=== PATIENT | female | born 1980 | race Caucasian/White ===

== ENCOUNTER 2016-06-18 06:44 | Day surgery (SDC) | payer OTHER ==
[2016-06-18] MEDS ORDERED: MIDAZOLAM 2 MG/2 ML VIAL IVP ONE (07:30)
[2016-06-18] MEDS ORDERED: LIDOCAINE 1% 2 ML INJ IF ONE (07:30)
[2016-06-18 07:31] LABS: % IMMATURE GRANULYOCYTES 0.2 % (0.0-1.1); ABSOLUTE IMMATURE GRANULOCYTES 0.01 10^3/uL (0.00-0.10); ADD DIFF? NO; ADD MORPH? NO; ADD SCAN? NO; ATYPICAL LYMPHOCYTE FLAG 50 (0-99); FRAGMENT RBC FLAG 0 (0-99); HEMATOCRIT 37.2 % (38.0-47.0); HEMOGLOBIN 13.2 g/dL (12.6-16.3); LEFT SHIFT FLG 0 (0-99); LIPEMIA HEMOLYSIS FLAG 90 (0-99); MEAN CELL HEMOGLOBIN 32.9 pg (27.9-34.1); MEAN CELL HEMOGLOBIN CONCENTR. 35.5 g/dL (32.4-36.7); MEAN CELL VOLUME 92.8 fL (81.5-99.8); MEAN PLATELET VOLUME 10.8 fL (8.7-11.7); PLATELET CLUMPS FLAG 10 (0-99); PLATELET COUNT 213 10^3/uL (150-400); RED BLOOD CELL COUNT 4.01 10^6/uL (4.18-5.33)
[2016-06-18] MEDS ORDERED: fentaNYL 100 MCG/2 ML INJ ONE (07:38)
[2016-06-18] MEDS ORDERED: PROPOFOL/EMULSION 500 MG/50 ML BOTTLE IV ONE (07:39)
[2016-06-18] MEDS ORDERED: LIDOCAINE 2% 5 ML SDV ONE (08:18)
[2016-06-18] MEDS ORDERED: DEXAMETHASONE 4 MG/ML VIAL ONE ×2 (08:18)
[2016-06-18] MEDS ORDERED: KETOROLAC 30 MG/1 ML SDV ONE (08:18)
[2016-06-18] MEDS ORDERED: HYDROCODONE/APAP 5/325 TAB PO PRN (08:27)
[2016-06-18] MEDS ORDERED: TDAP ADULT 0.5 ML INJ (BOOSTRIX) IM ONE (08:27)
--- NOTE | 2016-06-18 08:53 | GOP ---
[f rep st] OPERATIVE REPORT DATE OF OPERATION: 06/18/2016 SURGEON: Juju Vergara MD ANESTHESIA: IV general. ANESTHESIOLOGIST: Eric Malagon MD. 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 POSTOPERATIVE DIAGNOSIS: Same. PROCEDURE PERFORMED: Suction dilatation and curettage. FINDINGS: 13 week uterus. Cervix soft after misoprostol preparation. Intrauterine consistent with dates. Thin endometrial stripe at end of procedure. SPECIMENS: Products of conception, examined and consistent with gestational age , and found to be complete. ESTIMATED BLOOD LOSS: Minimal. DESCRIPTION OF PROCEDURE: The patient was taken to the operating room, and IV general sedation was started. She had already emptied her bladder. She was prepped and draped in the normal sterile fashion in dorsal lithotomy position. She had taken antibiotics at home the night before p.o. The Klopfer speculum was placed in the vagina. The cervix was grasped with a single-tooth tenaculum on the anterior lip. A paracervical block of 10 mL of 1% lidocaine was injected. The cervix was sequentially dilated to 12.5 mm using Annika dilators, this was easily performed with minimal resistance. The 12 mm suction curette was introduced into the uterus under direct ultrasound guidance. The uterine contents were completely emptied with 2 passes. At this time, the 8 mm suction curette was introduced, and it was confirmed that there was a gritty texture 360 degrees around the uterus. The ultrasound also confirmed that the uterus was empty with a thin uterine stripe. All instruments were removed. Silver nitrate was used to control bleeding at the left-sided tenaculum site. Hemostasis was noted at that point. The uterine fundus was firm. The patient was awakened and taken to the recovery room in stable condition. All counts were correct x2. COMPLICATIONS: None. /[id number]/MODL MTDD
== END 2016-06-18 09:50 | disposition home or self-care (01) ==
LOC: FOBOP 06:44
PROVIDERS: ATTEND Obstetrics & Gynecology
PROC: 10A07ZZ Abortion of Products of Conception, Via Natural or Artificial Opening (ICD-10-PCS; principal; 2016-06-18)
DX: O35.1XX0 Maternal care for (suspected) chromosomal abnormality in fetus, not applicable or unspecified (principal); Z3A.13 13 weeks gestation of pregnancy; Z23 Encounter for immunization
CPT/HCPCS: J1100; J1885; J2250; J2704; J3010

== ENCOUNTER → 2017-02-05 | Outpatient (CLI) | payer OTHER | LOC: BMCIMAGING 12:55 | PROVIDERS: ATTEND Advanced Practice Midwife | DX: Z36.87 Encounter for antenatal screening for uncertain dates (principal) ==

== ENCOUNTER → 2017-04-15 | Outpatient (CLI) | payer OTHER | LOC: FIMAGING 10:27 | PROVIDERS: ATTEND Advanced Practice Midwife | DX: O09.522 Supervision of elderly multigravida, second trimester (principal); N85.6 Intrauterine synechiae; Z3A.20 20 weeks gestation of pregnancy ==

== ENCOUNTER → 2017-09-02 | Outpatient (CLI) | payer OTHER | LOC: FIMAGING 14:40 | PROVIDERS: ATTEND Advanced Practice Midwife | DX: O09.523 Supervision of elderly multigravida, third trimester (principal); O48.0 Post-term pregnancy; Z3A.40 40 weeks gestation of pregnancy ==

== ENCOUNTER 2017-09-10 12:05 | Inpatient (IN) | payer OTHER ==
[2017-09-10] MEDS ORDERED: LIDOCAINE 1% 300 MG/30 ML SDV SC PRN (12:35)
[2017-09-10] MEDS ORDERED: OLIVE OIL 118 ML BTL MISC PRN (12:35)
[2017-09-10] MEDS ORDERED: TERBUTALINE SULFATE 1 MG/ML VIAL IV PRN (12:35)
[2017-09-10] MEDS ORDERED: IBUPROFEN 600 MG TAB PO PRN (12:35)
[2017-09-10] MEDS ORDERED: OXYTOCIN/RINGERS LACTATE 1,000 ML IV PRN (12:35)
[2017-09-10] MEDS ORDERED: MISOPROSTOL 200 MCG TAB PR PRN (12:35)
[2017-09-10] MEDS ORDERED: LR 1,000 ML IV PRN (12:35)
[2017-09-10] MEDS ORDERED: EPSOM SALT 454 GM TP PRN (12:35)
[2017-09-10 13:33] LABS: PLATELET COUNT 189 10^3/uL (150-400)
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
[2017-09-10] MEDS ORDERED: OLIVE OIL 118 ML BTL ONE (14:49)
[2017-09-10] MEDS ORDERED: LIDOCAINE 1% 300 MG/30 ML SDV ONE (14:49)
[2017-09-10] MEDS ORDERED: AMMONIA AROMATIC 1 EACH AMP IH ONE (14:50)
[2017-09-10] MEDS ORDERED: MISOPROSTOL 200 MCG TAB ONE (14:50)
[2017-09-10] MEDS ORDERED: OXYTOCIN 10 UNIT/ML VIAL ONE (14:50)
[2017-09-10] MEDS ORDERED: TERBUTALINE SULFATE 1 MG/ML VIAL ONE (14:50)
[2017-09-10] MEDS ORDERED: OXYTOCIN/RINGERS LACTATE 500 ML IV SCH (15:00)
--- NOTE | 2017-09-10 20:51 | OBPROG ---
Labor Progress Note Assessment/Plan: Assessment:36 undergoing 42 wk IOL with pitocin. GBS neg. Not in active labor yet, slow progress. Plan: Continue with pitocin. Georges Santiago MD 09/10/17 20:44 Subjective/Intrapartum Course: 09/10/17 20:46 Pt doing well, getting a bit uncomfortable with contractions. No LOF. Objective: 09/10/17 12:40 Patient ABO/Rh AB POSITIVE 09/10/17 12:40 37.0 68 120/72 95% on RA Gen - pleasant, NAD SVE 3.5 / 60 / -3 FHR 130 with 2 episodes of bradycardia to 90s x 2-3 minutes when pt was ambulating. toco - was q 1-2 min. Just turned pitocin down from 12 to 6mIU/hr. - SVE Dilation (cm): 3 Effacement (%): 50 Station: -2 Membranes: Intact - Contraction Pattern Assessment Current Contraction Pattern: Regular, Tachysystole - FHR Assessment Platt FHR (bpm): 130 FHR Pattern Variability: Moderate FHR Category: 1 Oxytocin Orders Assessment - Pre-Induction/Augmentation Assessment Gestational Age: 42 week(s) and 0 day(s) ICD10 Worksheet Patient Problems: Problems Problem Status Onset Post-dates Acute - ICD10 Problem Qualifiers (1) Post-dates Qualifiers: Post-term type: greater than 42 weeks gestation Qualified Code(s) : O48.1 - Prolonged
--- NOTE | 2017-09-11 00:51 | OBPROG ---
Labor Progress Note Assessment/Plan: Assessment:36 undergoing 42 wk IOL with pitocin. GBS neg. Not in active labor yet, slow progress. Plan: Continue with pitocin. Georges Santiago MD 09/10/17 20:44 09/11/17 00:38 A/P: 36 at 42w1d undergoing IOL with pitocin. GBS neg. Still not in active labor yet. Will continue pitocin. Georges Santiago MD Subjective/Intrapartum Course: 09/10/17 20:46 Pt doing well, getting a bit uncomfortable with contractions. No LOF. 09/11/17 00:39 Pt a bit frustrated. Sometimes contractions are uncomfortable, sometime not at all. No LOF, no VB. Objective: 09/10/17 12:40 Patient ABO/Rh AB POSITIVE 09/10/17 12:40 36.6 66 110/56 Gen - pleasant, NAD SVE - 4/60/-2 min change abd - gravid, soft, NT - SVE Dilation (cm): 4 Effacement (%): 50 Membranes: Intact - Contraction Pattern Assessment Current Contraction Pattern: Regular, Tachysystole Oxytocin Orders Assessment - Pre-Induction/Augmentation Assessment Gestational Age: 42 week(s) and 0 day(s) ICD10 Worksheet Patient Problems: Problems Problem Status Onset Post-dates Acute - ICD10 Problem Qualifiers (1) Post-dates Qualifiers: Post-term type: greater than 42 weeks gestation Qualified Code(s) : O48.1 - Prolonged
--- NOTE | 2017-09-11 04:43 | OBPROG ---
Labor Progress Note Assessment/Plan: Assessment:36 undergoing 42 wk IOL with pitocin. GBS neg. Not in active labor yet, slow progress. Plan: Continue with pitocin. Georges Santiago MD 09/10/17 20:44 09/11/17 00:38 A/P: 36 at 42w1d undergoing IOL with pitocin. GBS neg. Still not in active labor yet. Will continue pitocin. Georges Santiago MD 09/11/17 04:39 A/P: 36 at 42w1d, undergoing IOL, no s/p AROM - lt mec fluid, making slow progress. Continue pitocin. Georges Santiago MD Subjective/Intrapartum Course: 09/10/17 20:46 Pt doing well, getting a bit uncomfortable with contractions. No LOF. 09/11/17 00:39 Pt a bit frustrated. Sometimes contractions are uncomfortable, sometime not at all. No LOF, no VB. 09/11/17 04:40 Doing well, was in the tube for a while. Agreed to proceed with AROM after a long discussion. Objective: 09/10/17 12:40 Patient ABO/Rh AB POSITIVE 09/10/17 12:40 AROM - lt mec, SVE 5/60/-2 - SVE Membranes: Intact Amniotic Fluid Color: Meconium Stained - Contraction Pattern Assessment Current Contraction Pattern: Regular, Tachysystole - FHR Assessment Platt FHR (bpm): 140 (occasional late decel) FHR Pattern Variability: Moderate FHR Category: 2 (intermittent late appearing and variable decels) - Procedures Non-surgical Procedures: Amniotomy Oxytocin Orders Assessment - Pre-Induction/Augmentation Assessment Gestational Age: 42 week(s) and 0 day(s) ICD10 Worksheet Patient Problems: Problems Problem Status Onset Post-dates Acute - ICD10 Problem Qualifiers (1) Post-dates Qualifiers: Post-term type: greater than 42 weeks gestation Qualified Code(s) : O48.1 - Prolonged
[2017-09-11] MEDS ORDERED: fentaNYL 100 MCG/2 ML INJ IVP ONE (08:36)
[2017-09-11] MEDS ORDERED: fentaNYL 100 MCG/2 ML INJ ONE ×2 (08:37→13:13)
--- NOTE | 2017-09-11 08:43 | OBPROG ---
Labor Progress Note Assessment/Plan: Assessment: 36 y/o @ 42 1/7 weeks IOL secondary to post dates Plan: Pt will get an epidural now and allow pt to rest, we will dose pitocin to create adequate contractions. status is reassuring. 09/11/17 08:39 Subjective/Intrapartum Course: 09/10/17 20:46 Pt doing well, getting a bit uncomfortable with contractions. No LOF. 09/11/17 00:39 Pt a bit frustrated. Sometimes contractions are uncomfortable, sometime not at all. No LOF, no VB. 09/11/17 04:40 Doing well, was in the tube for a while. Agreed to proceed with AROM after a long discussion. 09/11/17 08:37 Pt is feeling very tired and frustrated. She continues to have strong contractions, but feels less pressure and less momentum. She is exhausted and wants to be "done." Objective: 09/10/17 12:40 Patient ABO/Rh AB POSITIVE 09/10/17 12:40 - SVE Dilation (cm): 6 Effacement (%): 90 Station: +1 Membranes: AROM, Intact Amniotic Fluid Color: Meconium Stained - Contraction Pattern Assessment Current Contraction Pattern: Regular, Irregular (Q 3-5), Tachysystole - FHR Assessment Platt FHR (bpm): 140 FHR Pattern Variability: Moderate FHR Category: 1 - Procedures Non-surgical Procedures: Amniotomy Oxytocin Orders Assessment - Pre-Induction/Augmentation Assessment Gestational Age: 42 week(s) and 0 day(s) ICD10 Worksheet Patient Problems: Problems Problem Status Onset Post-dates Acute
[2017-09-11] MEDS ORDERED: BUPIVACAINE 0.25% 30 ML SDV ONE (08:47)
--- NOTE | 2017-09-11 08:47 | PREANESOB ---
Obstetric Pre-Anesthesia Info - General Info Proposed Procedure: TENA : 2 Para: 0 CODIE: 08/27/17 Gestational Age: 42 week(s) and 0 day(s) - Info Status: Full Term Monitors: External FHR Pattern: Reassuring - Labor Status Cervical Dilation per last OB SVE: 6 Station per last OB SVE: +1 Amniotic Fluid Color: Meconium Stained PIH: No Magnesium Sulfate in Use: No Indications for Labor Analgesia: Pain Control Labor Epidural: Proposed (Patient transfered from center - requesting labor epidural) Anesthesia ROS: Labor pain (uterine contractions) only reported issue at time of interview. Allergies/Adverse Reactions: Allergy/AdvReac Type Severity Reaction Status Date / Time No Known Allergies Allergy Unverified 06/18/16 07:25 Home Medications: Medication Instructions Recorded Dha 09/10/17 Vit27&Calcium/Iron/FA 1 each PO DAILY 09/10/17 [ Rx 1 Tablet (RX)] Probiotic 09/10/17 Vitamin D3 09/10/17 Visit Medications: Generic Name Dose Route Start Last Admin Trade Name Markos PRN Reason Stop Dose Admin Lactated Ringer's 1,000 mls @ 0 mls/hr 09/10/17 12:35 Lr IV 09/11/17 12:34 PRN PRN SEE PROTOCOL CONDITIONS Protocol Per Protocol Oxytocin/Lactated Ringer's 1,000 mls @ 125 mls/hr 09/10/17 12:35 Pitocin 20 Units/Lr (Premix) IV PRN PRN Post bleeding Oxytocin/Lactated Ringer's 500 mls @ 0 mls/hr 09/10/17 15:00 Pitocin 30 Units/Lr (Premix) IV 03/09/18 14:59 CONT LANDY Protocol Per Protocol Ibuprofen 600 mg 09/10/17 12:35 Motrin PO ONCE PRN post , pain Lidocaine HCl 300 mg 09/10/17 12:35 Lidocaine Hcl 1% SC 03/09/18 12:34 ONCE PRN episiotomy Magnesium Sulfate 454 gm 09/10/17 12:35 Epsom Salt TP 03/09/18 12:34 Q1H PRN perineal discomfort Misoprostol 800 - 1,000 mcg 09/10/17 12:35 Cytotec IN ONCE PRN Vaginal Atony/Bleeding [place] Oil 118 ml 09/10/17 12:35 Sweet Oil MISC 12/19/18 12:34 ONCE PRN perineal massage Terbutaline Sulfate 0.25 mg 09/10/17 12:35 Brethine IV 03/09/18 12:34 ONCE PRN Tachysystole Discontinued Medications Generic Name Dose Route Start Last Admin Trade Name Markos PRN Reason Stop Dose Admin Ammonia (Aromatic Spirit) Confirm 09/10/17 14:50 Ammonia Aromatic Administered 09/10/17 14:51 Dose 1 each IH .STK-MED ONE Fentanyl 100 mcg 09/11/17 08:36 Sublimaze IVP 09/11/17 08:37 ONCE ONE Fentanyl Confirm 09/11/17 08:37 Sublimaze Administered 09/11/17 08:38 Dose 100 mcg .ROUTE .STK-MED ONE Lidocaine HCl Confirm 09/10/17 14:49 Lidocaine Hcl 1% Administered 09/10/17 14:50 Dose 300 mg .ROUTE .STK-MED ONE Misoprostol Confirm 09/10/17 14:50 Cytotec Administered 09/10/17 14:51 Dose 1,000 mcg .ROUTE .STK-MED ONE [place] Oil Confirm 09/10/17 14:49 Sweet Oil Administered 09/10/17 14:50 Dose 118 ml .ROUTE .STK-MED ONE Oxytocin Confirm 09/10/17 14:50 Pitocin Administered 09/10/17 14:51 Dose 40 unit .ROUTE .STK-MED ONE Terbutaline Sulfate Confirm 09/10/17 14:50 Brethine Administered 09/10/17 14:51 Dose 1 mg .ROUTE .STK-MED ONE - Anesthesia History Response to Local Anesthetics: Normal Anesthesia & Operative History: No Prior Problems Family Anesthesia History: Not Applicable - Social History Substance Use/Abuse: Denies - Vital Signs Height/Weight (Nursing): Height 170.18 cm Weight 97.976 kg - Focused Exam Neck exam: FROM Mallampati Score: Class 2 Mouth exam: normal dental/mouth exam Pulmonary: no respiratory distress Cardiovascular: regular rate and rhythym Labs: 09/10/17 12:40 Patient ABO/Rh AB POSITIVE 09/10/17 12:40 - Plan Consent Signed and on Chart: Yes Patient/Guardian Understands and Agrees to Plan: Yes
[2017-09-11] MEDS ORDERED: PHENYLEPHRINE HCL 100 MCG/ML SYR IVP PRN ×2 (09:26→14:42)
[2017-09-11] MEDS ORDERED: ONDANSETRON 4 MG/2 ML VIAL IVP PRN ×2 (09:26→14:42)
[2017-09-11] MEDS ORDERED: LR 500 ML IV SCH (09:30)
[2017-09-11] MEDS ORDERED: fentaNYL 200 MCG, BUPIVACAINE 0.5% 20 ML in NS 100 ML EP SCH (09:30)
[2017-09-11] MEDS ORDERED: fentaNYL 2MCG/ML/BUP 0.1% RTU 100 ML EP SCH (09:30)
--- NOTE | 2017-09-11 09:52 | POSTANESTH ---
Post Anesthetic Evaluation Cardiovascular Status: Normal, Stable, Similar to Pre-Op Cond Respiratory Status: Normal, Stable, Similar to Pre-op Cond. Level of Consciousness/Mental Status: Can Participate in Eval, Alert and Oriented Pain Control: Adequate, Prn Tx Ordered Nausea/Vomiting Control: Adequate, Prn Tx Ordered Complications Possibly Related to Anesthesia: None Noted (Patient comfortable after placement of labor epidural. Patient tolerated procedure well.)
--- NOTE | 2017-09-11 12:15 | OBPROG ---
Labor Progress Note Assessment/Plan: Assessment: 36 y/o @ 42 1/7 weeks IOL secondary to post dates Plan: Pt has made little progress in the interim. I placed an IUPC to document the adequacy of contractions and we will increase the pitocin as needed. status is reassuring, exam feels OP position. We are trying side lying with peanut ball and various other positioning to attempt to encourage baby to turn. I will recheck in 2 hours. 09/11/17 08:39 09/11/17 12:12 Subjective/Intrapartum Course: 09/10/17 20:46 Pt doing well, getting a bit uncomfortable with contractions. No LOF. 09/11/17 00:39 Pt a bit frustrated. Sometimes contractions are uncomfortable, sometime not at all. No LOF, no VB. 09/11/17 04:40 Doing well, was in the tube for a while. Agreed to proceed with AROM after a long discussion. 09/11/17 08:37 Pt is feeling very tired and frustrated. She continues to have strong contractions, but feels less pressure and less momentum. She is exhausted and wants to be "done." 09/11/17 12:11 Pt is feeling much better with her epidural. She has good pain control and was able to rest and feels revived. She would like to try some clear liquids. Objective: 09/10/17 12:40 Patient ABO/Rh AB POSITIVE 09/10/17 12:40 - SVE Dilation (cm): 7 Effacement (%): 80 Station: +1 Membranes: AROM, Intact Amniotic Fluid Color: Meconium Stained - Contraction Pattern Assessment Current Contraction Pattern: Regular, Irregular (Q 3-5), Tachysystole - FHR Assessment Platt FHR (bpm): 140 FHR Pattern Variability: Moderate FHR Category: 1 - Procedures Non-surgical Procedures: Amniotomy, IUPC Oxytocin Orders Assessment - Pre-Induction/Augmentation Assessment Gestational Age: 42 week(s) and 0 day(s) ICD10 Worksheet Patient Problems: Problems Problem Status Onset Post-dates Acute
[2017-09-11] MEDS ORDERED: PHENYLEPHRINE HCL 100 MCG/ML SYR ONE (13:14)
[2017-09-11] MEDS ORDERED: LR 500 ML IV ONE (13:34)
[2017-09-11] MEDS ORDERED: ceFAZolin 2 GM/DEXTROSE 100 ML IV ONE (13:34)
--- NOTE | 2017-09-11 13:34 | OBPROG ---
Labor Progress Note Assessment/Plan: Assessment: 36 y/o @ 42 1/7 weeks IOL secondary to post dates Plan: We discussed little progress has been made with pitocin and IUPC. Baby is showing signs of intolerance to labor and she remains remote from delivery. I recommend a c section delivery now and patient and family are in agreement. Consent signed and all questions answered. 09/11/17 08:39 09/11/17 12:12 09/11/17 13:30 Subjective/Intrapartum Course: 09/10/17 20:46 Pt doing well, getting a bit uncomfortable with contractions. No LOF. 09/11/17 00:39 Pt a bit frustrated. Sometimes contractions are uncomfortable, sometime not at all. No LOF, no VB. 09/11/17 04:40 Doing well, was in the tube for a while. Agreed to proceed with AROM after a long discussion. 09/11/17 08:37 Pt is feeling very tired and frustrated. She continues to have strong contractions, but feels less pressure and less momentum. She is exhausted and wants to be "done." 09/11/17 12:11 Pt is feeling much better with her epidural. She has good pain control and was able to rest and feels revived. She would like to try some clear liquids. 09/11/17 13:28 Pt remains comfortable with her epidural. Objective: 09/10/17 12:40 Patient ABO/Rh AB POSITIVE 09/10/17 12:40 - SVE Dilation (cm): 7 Effacement (%): 80 Station: 0 Membranes: AROM, Intact Amniotic Fluid Color: Meconium Stained - Contraction Pattern Assessment Current Contraction Pattern: Regular, Irregular (Q 5), Tachysystole - FHR Assessment Platt FHR (bpm): 140 FHR Pattern Variability: Moderate FHR Category: 2 (episodes of min variability, tachycardia and late decelerations , now resolved off pitocin) - Procedures Non-surgical Procedures: Amniotomy, IUPC Oxytocin Orders Assessment - Pre-Induction/Augmentation Assessment Gestational Age: 42 week(s) and 0 day(s) ICD10 Worksheet Patient Problems: Problems Problem Status Onset Post-dates Acute
--- NOTE | 2017-09-11 13:40 | PREANESOB ---
Obstetric Pre-Anesthesia Info - General Info Proposed Procedure: (with existing labor epidural) : 2 Para: 0 CODIE: 08/27/17 Gestational Age: 42 week(s) and 0 day(s) - Info Status: Full Term FHR Pattern: Non-reassuring - Labor Status Cervical Dilation per last OB SVE: 7 Station per last OB SVE: 0 Amniotic Fluid Color: Meconium Stained Pitocin: In Use PIH: No Magnesium Sulfate in Use: No Indications for Labor Analgesia: Pain Control Section History: Primary Indications for Current Section: Non-reas. Status Labor Epidural: Yes Anesthesia Allergies/Adverse Reactions: Allergy/AdvReac Type Severity Reaction Status Date / Time No Known Allergies Allergy Unverified 06/18/16 07:25 Home Medications: Medication Instructions Recorded Dha 09/10/17 Vit27&Calcium/Iron/FA 1 each PO DAILY 09/10/17 [ Rx 1 Tablet (RX)] Probiotic 09/10/17 Vitamin D3 09/10/17 Visit Medications: Generic Name Dose Route Start Last Admin Trade Name Markos PRN Reason Stop Dose Admin Oxytocin/Lactated Ringer's 1,000 mls @ 125 mls/hr 09/10/17 12:35 Pitocin 20 Units/Lr (Premix) IV PRN PRN Post bleeding Oxytocin/Lactated Ringer's 500 mls @ 0 mls/hr 09/10/17 15:00 Pitocin 30 Units/Lr (Premix) IV 03/09/18 14:59 CONT LANDY Protocol Per Protocol Fentanyl 200 mcg/ Bupivacaine 100 mls @ 0 mls/hr 09/11/17 09:30 HCl 20 ml/ Sodium Chloride EP 09/21/17 09:29 CONT LANDY Protocol As Directed Lactated Ringer's 500 mls @ 0 mls/hr 09/11/17 09:30 Lr IV 03/10/18 09:29 CONT LANDY As Directed Cefazolin Sodium/Dextrose 100 mls @ 200 mls/hr 09/11/17 13:34 Ancef 2 Gm IV 09/11/17 14:03 ONCALL ONE Protocol Lactated Ringer's 1,000 mls @ 125 mls/hr 09/11/17 14:00 Lr IV 09/12/17 13:59 CONT LANDY Ibuprofen 600 mg 09/10/17 12:35 Motrin PO ONCE PRN post , pain Lidocaine HCl 300 mg 09/10/17 12:35 Lidocaine Hcl 1% SC 03/09/18 12:34 ONCE PRN episiotomy Magnesium Sulfate 454 gm 09/10/17 12:35 Epsom Salt TP 03/09/18 12:34 Q1H PRN perineal discomfort Misoprostol 800 - 1,000 mcg 09/10/17 12:35 Cytotec [place] ONCE PRN Vaginal Atony/Bleeding [place] Oil 118 ml 09/10/17 12:35 Sweet Oil MISC 03/09/18 12:34 ONCE PRN perineal massage Ondansetron HCl 4 mg 09/11/17 09:26 Zofran IVP 09/12/17 09:25 Q4HRS PRN Nausea/Vomiting, Can't Take PO Phenylephrine HCl 100 mcg 09/11/17 09:26 Neosynephrine IVP 03/10/18 09:25 .Q2M PRN Hypotension Terbutaline Sulfate 0.25 mg 09/10/17 12:35 Brethine IV 03/09/18 12:34 ONCE PRN Tachysystole Discontinued Medications Generic Name Dose Route Start Last Admin Trade Name Freq PRN Reason Stop Dose Admin Ammonia (Aromatic Spirit) Confirm 09/10/17 14:50 Ammonia Aromatic Administered 09/10/17 14:51 Dose 1 each IH .STK-MED ONE Bupivacaine HCl Confirm 09/11/17 08:47 Sensorcaine 0.25% Sdv Administered 09/11/17 08:48 Dose 30 ml .ROUTE .STK-MED ONE Fentanyl 100 mcg 09/11/17 08:36 Sublimaze IVP 09/11/17 08:37 ONCE ONE Fentanyl Confirm 09/11/17 08:37 Sublimaze Administered 09/11/17 08:38 Dose 100 mcg .ROUTE .STK-MED ONE Fentanyl Confirm 09/11/17 13:13 Sublimaze Administered 09/11/17 13:14 Dose 100 mcg .ROUTE .STK-MED ONE Lactated Ringer's 1,000 mls @ 0 mls/hr 09/10/17 12:35 Lr IV 09/11/17 12:34 PRN PRN SEE PROTOCOL CONDITIONS Protocol Per Protocol Lactated Ringer's 500 mls @ 0 mls/hr 09/11/17 13:34 Lr IV 09/11/17 13:35 ONCE ONE As Directed Lidocaine HCl Confirm 09/10/17 14:49 Lidocaine Hcl 1% Administered 09/10/17 14:50 Dose 300 mg .ROUTE .STK-MED ONE Misoprostol Confirm 09/10/17 14:50 Cytotec Administered 09/10/17 14:51 Dose 1,000 mcg .ROUTE .STK-MED ONE Morphine Sulfate Confirm 09/11/17 13:12 Morphine Administered 09/11/17 13:13 Dose 4 mg .ROUTE .STK-MED ONE [place] Oil Confirm 09/10/17 14:49 Sweet Oil Administered 09/10/17 14:50 Dose 118 ml .ROUTE .STK-MED ONE Oxytocin Confirm 09/10/17 14:50 Pitocin Administered 09/10/17 14:51 Dose 40 unit .ROUTE .STK-MED ONE Phenylephrine HCl Confirm 09/11/17 13:14 Neosynephrine Administered 09/11/17 13:15 Dose 1,000 mcg .ROUTE .STK-MED ONE Terbutaline Sulfate Confirm 09/10/17 14:50 Brethine Administered 09/10/17 14:51 Dose 1 mg .ROUTE .STK-MED ONE - Anesthesia History Response to Local Anesthetics: Normal Anesthesia & Operative History: No Prior Problems Family Anesthesia History: Negative - Social History Substance Use/Abuse: Denies - Vital Signs Height/Weight (Nursing): Height 170.18 cm Weight 97.976 kg - Focused Exam Neck exam: FROM Mallampati Score: Class 2 Mouth exam: normal dental/mouth exam Pulmonary: no respiratory distress Cardiovascular: regular rate and rhythym Labs: 09/10/17 12:40 Patient ABO/Rh AB POSITIVE 09/10/17 12:40 - Plan Consent Signed and on Chart: Yes Patient/Guardian Understands and Agrees to Plan: Yes
[2017-09-11] MEDS ORDERED: LR 1,000 ML IV SCH (14:00)
[2017-09-11] MEDS ORDERED: CHLOROPROCAINE HCL 2% 400 MG/20 ML VIAL ONE (14:10)
[2017-09-11] MEDS ORDERED: ONDANSETRON 4 MG/2 ML VIAL ONE (14:19)
[2017-09-11] MEDS ORDERED: DEXAMETHASONE 4 MG/ML VIAL ONE (14:20)
[2017-09-11] MEDS ORDERED: METHYLERGONOVINE MAL 0.2 MG/ML INJ ONE (14:30)
[2017-09-11] MEDS ORDERED: fentaNYL 100 MCG/2 ML INJ IVP PRN (14:42)
[2017-09-11] MEDS ORDERED: NALOXONE HCL 0.4 MG/ML INJ IVP PRN (14:42)
[2017-09-11] MEDS ORDERED: HYDROmorphONE/DILAUDID 1 MG/ML INJ IVP PRN (14:42)
[2017-09-11] MEDS ORDERED: OXYTOCIN 100 UNITS/10 ML VIAL ONE (14:53)
[2017-09-11] MEDS ORDERED: PROMETHAZINE HCL 25 MG/ML INJ IVP PRN (15:09)
[2017-09-11] MEDS ORDERED: SIMETHICONE 80 MG TAB CHEW PO PRN (15:09)
[2017-09-11] MEDS ORDERED: DOCUSATE SODIUM 100 MG CAP PO PRN (15:09)
[2017-09-11] MEDS ORDERED: BISACODYL 10 MG SUPP PR PRN (15:14)
[2017-09-11] MEDS ORDERED: MAGNESIUM HYDROXIDE 30 ML UDCUP PO PRN (15:14)
[2017-09-11] MEDS ORDERED: POLYETHYLENE GLYCOL 3350 17 GM PKT PO PRN (15:14)
[2017-09-11] MEDS ORDERED: LACTULOSE 20 GM/30 ML UDCUP PO PRN (15:14)
--- NOTE | 2017-09-11 15:18 | OBDEL ---
Info Type: Primary Presentation at Delivery: Vertex L&D Analgesia/Anesthesia Type: Epidural GBS+: No Intrapartum Medications: Discontinued Medications Generic Name Dose Route Start Last Admin Trade Name Markos PRN Reason Stop Dose Admin Cefazolin Sodium/Dextrose 100 mls @ 200 mls/hr 09/11/17 13:34 09/11/17 13:52 Ancef 2 Gm IV 09/11/17 14:03 100 mls ONCALL ONE Administration Protocol - Care Provider Reverser/LANDSCAPER HELPER: Ayleen Maxwell - Hospital Course Intrapartum: 09/10/17 20:46 Pt doing well, getting a bit uncomfortable with contractions. No LOF. 09/11/17 00:39 Pt a bit frustrated. Sometimes contractions are uncomfortable, sometime not at all. No LOF, no VB. 09/11/17 04:40 Doing well, was in the tube for a while. Agreed to proceed with AROM after a long discussion. 09/11/17 08:37 Pt is feeling very tired and frustrated. She continues to have strong contractions, but feels less pressure and less momentum. She is exhausted and wants to be "done." 09/11/17 12:11 Pt is feeling much better with her epidural. She has good pain control and was able to rest and feels revived. She would like to try some clear liquids. 09/11/17 13:28 Pt remains comfortable with her epidural. Indications for Delivery: Postterm Favorable Cervix (42 weeks IOL) Vaginal Delivery - Labor and Delivery Amniotic Fluid Color: Meconium Stained Non-surgical Procedures: Amniotomy, IUPC Operative Report - Delivery Pre-op Diagnoses: IUP @ 42 weeks, intolerance to labor, arrest of dilation Post-op Diagnoses: same History of Prior Section: No Nulliparous Prior to Delivery: No Indications for Current Section: Arrest of Dilation, Non-reas. Status Procedure: Unscheduled Surgeon: Nayeli Caicedo Inventory Management Specialist: Layne Santiago Anesthesiologist: Moose Liu Complications: None Findings: normal uterus, tubes and ovaries IV Fluid (ml): 2,000 EBL: 800 Data CODIE: 08/27/17 Gestational Age: 42 week(s) and 1 day(s) [place] Delivery Date: 09/11/17 Delivery Time: 14:23 ICD10 Worksheet Patient Problems: Problems Problem Status Onset Delivery by section using transverse incision of lower segment of uterus Acute Post-dates Acute - ICD10 Problem Qualifiers (1) Delivery by section using transverse incision of lower segment of uterus
[2017-09-11] MEDS ORDERED: KETOROLAC 30 MG/1 ML SDV ONE (15:23)
--- NOTE | 2017-09-11 16:14 | GOP ---
[f rep st] OPERATIVE REPORT DATE OF OPERATION: 09/11/2017 SURGEON: Nayeli Caicedo MD FREIGHT ROUTER: Layne Santiago MD. ANESTHESIA: Epidural anesthesia with Duramorph. ANESTHESIOLOGIST: Moose Liu MD. PREOPERATIVE DIAGNOSIS: Intrauterine at 42 weeks' gestation for induction of labor seconda ry to postdates with arrest of dilation and intolerance to labor. POSTOPERATIVE DIAGNOSIS: Intrauterine at 42 weeks' gestation for induction of labor second erasto to postdates with arrest of dilation and intolerance to labor. PROCEDURE PERFORMED: Primary low transverse section. FINDINGS: Viable female, Apgars of 8 and 9, weight of 4200 g. ESTIMATED BLOOD LOSS: 800 mL. INDICATIONS: Jane is a 36-year-old, 2, para 0-0-1-0, who received her care at the [facility]. She was admitted at 42 weeks' gestation, confirmed by a 10-week ultrasound fo r a postdates induction of labor. She had, had a Talavera catheter the evening prior to admission on . She had prodromal labor symptoms, but never went into active labor. When she was admitted h ere, she was 3 cm, 50%, -2. The patient was admitted, received Pitocin augmentation. She progressed to approximately 6 cm, had artificial rupture of membranes for clear fluid, became more active, but in the morning had stalled at 7 cm. She an epidural and on examination felt that the baby was in occ iput posterior presentation. The patient rested with her epidural. We tried various position change s to induce the baby and tried to turn and increase the Pitocin for adequate amount of the day of uni ts. Her contractions were adequate for more than 2 hours and she did not progress past 7 cm. During this, the baby began having decreased variability, episodes of tachycardia with a baseline in the 17 0s and episodes of late decelerations with contractions. Because of the signs of intolerance t o labor and the patient was remote from delivery, despite adequate and amount of the day of units, decision was made to proceed with surgical delivery with a section and patient was in agre ement. The patient was consented for the procedure. She understood the risks and benefits. The ris ks including bleeding, infection, damage to the uterus including possible risk of perforation damage to other organs if perforation was to occur, risk of bowel, bladder, nerve loss, blood vessels, urete rs, risk of injury, risk of blood transfusion, hysterectomy. The patient understood these risk s and benefits and agreed to proceed. DESCRIPTION OF PROCEDURE: Patient was taken to the operating room where her epidural was dosed and f ound to be adequate. She was prepped and draped in the dorsal supine position with a leftward tilt, and a Talavera catheter previously been placed in her bladder. After adequate anesthesia was assured an d a WHO time-out was performed, a transverse skin incision was made with a scalpel and the incision w as carried down to the underlying layer of fascia with the Bovie. The fascia was incised in the midl ine. Fascial incision was extended laterally with the with Martin scissors. Superior aspect of the fa scial incision was grasped with Eula clamps, elevated, and the rectus muscles were dissected off sh arply. Inferior aspect of the fascial incision was grasped with Eula clamps, elevated, and the rec tus muscles were dissected off sharply. Rectus muscles were in the midline. Peritoneum wa s entered sharply. Peritoneal incision was extended superiorly and inferiorly with good visualizatio n of the bladder. Bladder blade was inserted. Vesicouterine peritoneum was grasped pickups, entered sharply with Metzenbaum scissors. The incision was extended laterally, and bladder flap was created digitally. The uterus was incised with a knife. There was clear amniotic fluid upon entry of the u terine cavity. The baby was in direct occipitoposterior presentation, was delivered atraumatically. The mouth and nose were bulb suctioned. The infant was dried. We delayed cord clamping for 1 minut e and the baby was vigorous on the operating table. The cord was clamped and cut. The was manzanares nded off to the waiting nurse practitioners. Cord bloods were sent. The placenta was remov ed manually. The uterus was exteriorized and cleared of all clots and debris. The uterine incision was repaired with 0 Vicryl in a running locked fashion. A second imbricating layer of suture was per formed with 0 Vicryl and good hemostasis was assured. The uterus was returned to the abdomen. Gutte rs were cleared of all clots and debris. Reinspection of the uterine incision again assured hemostas is. The rectus muscles were approximated with an inverted mattress fashion of 2-0 Vicryl. The fasci a was closed with #1 Vicryl in a running fashion. Subcutaneous layer was closed with 2-0 Vicryl and the skin was closed with 4-0 Vicryl. The patient tolerated the procedure well. Sponge, lap, needle, and instrument counts were correct x3. The patient went to the recovery room in good condition. FLUID REPLACEMENT: Was approximately 2000 mL. URINE OUTPUT: Was 50 mL. /[id number]/MODL
[2017-09-11] MEDS: KETOROLAC 30 MG/1 ML SDV IVP SCH (21:33)
[2017-09-11] MEDS: SENNOSIDES/DOCUSATE SODIUM TAB PO SCH (21:53)
[2017-09-12] MEDS: KETOROLAC 30 MG/1 ML SDV IVP SCH ×3 (03:39→12:47)
[2017-09-12] MEDS: SENNOSIDES/DOCUSATE SODIUM TAB PO SCH ×2 (09:49→20:57)
--- NOTE | 2017-09-12 10:06 | OBPP ---
Progress Note Assessment/Plan: Assessment:36 undergoing 42 wk IOL with pitocin. GBS neg. Not in active labor yet, slow progress. Plan: Continue with pitocin. Georges Santiago MD 09/10/17 20:44 09/11/17 00:38 A/P: 36 at 42w1d undergoing IOL with pitocin. GBS neg. Still not in active labor yet. Will continue pitocin. Georges Santiago MD 09/11/17 04:39 A/P: 36 at 42w1d, undergoing IOL, no s/p AROM - lt mec fluid, making slow progress. Continue pitocin. Georges Santiago MD 09/12/17 09:52 A/P: POD #1 s/p primary LTCS - doing well - continue routine post op cares, DC Talavera catheter by this afternoon Anemic - will start bid iron supplementation. Georges Santiago MD Subjective/ Course: 09/12/17 09:53 Doing well. Was able to get some sleep overnight. Working on . Moderate lochia. Still has urinary catheter in currently. Has been out of bed once - did well, was momentarily dizzy but resolved. Pain well controlled. Objective: 09/12/17 06:00 Patient ABO/Rh AB POSITIVE 09/10/17 12:40 Temp Pulse Resp BP Pulse Ox 36.9 C 68 18 101/62 96 09/12/17 04:30 09/12/17 06:15 09/12/17 06:15 09/12/17 04:30 09/12/17 06:15 Gen - pleasant, NAD CV - RRR chest - CTAB abd - soft, + BS, fundus firm at u, incision - dressing is intact with 2 spots of serosanguinous drng - not much changed from last night's markings ext - calves NT, tr edema Intake and Output 09/11/17 09/12/17 09/12/17 17:59 05:59 17:59 Intake Total 1500 2200 Output Total 2800 450 Balance -2800 1500 1750 Intake: Oral (ml) 1800 IV Intake (ml) 1500 400 Output: Urine (ml) 800 450 Catheter 400 450 Toilet 400 Estimated Blood Loss (ml) 2000 Other: Intake Quantity Yes Sufficient Uterine Position/Fundal Height: At Umbilicus Uterine Tone: Firm
[2017-09-12] MEDS: HYDROCODONE/APAP 5/325 TAB PO PRN ×3 (12:02→20:57)
[2017-09-12] MEDS: FERRO-SEQUELS 65 MG TAB.ER PO SCH ×2 (12:02→20:57)
[2017-09-12] MEDS: IBUPROFEN 600 MG TAB PO SCH ×2 (15:53→21:37)
--- NOTE | 2017-09-12 20:47 | POSTANESTH ---
Post Anesthetic Evaluation Cardiovascular Status: Normal, Stable, Similar to Pre-Op Cond Respiratory Status: Normal, Stable, Similar to Pre-op Cond. Level of Consciousness/Mental Status: Can Participate in Eval, Alert and Oriented Pain Control: Adequate, Prn Tx Ordered Nausea/Vomiting Control: Adequate, Prn Tx Ordered Complications Possibly Related to Anesthesia: None Noted (Anesthesia Post-op note following on 09-11-2017. Patient doing well. Effects of epidural have worn off. Patient ambulating. Urinating on her own without need for urinary catheter. Patient denies back pain or symptoms of spinal headache.)
[2017-09-13] MEDS: HYDROCODONE/APAP 5/325 TAB PO PRN ×5 (00:58→17:00)
[2017-09-13] MEDS: IBUPROFEN 600 MG TAB PO SCH ×3 (04:15→16:00)
[2017-09-13] MEDS: SENNOSIDES/DOCUSATE SODIUM TAB PO SCH (08:42)
[2017-09-13 08:54] VITALS: BP 114/71
[2017-09-13] MEDS: FERRO-SEQUELS 65 MG TAB.ER PO SCH (10:12)
--- NOTE | 2017-09-13 13:30 | OBPP ---
Progress Note Assessment/Plan: Assessment: POD2 s/p unscheduled PLTCS for arrest of dilation. Routine cares, OK for dc home today. Mild anemia- PO iron. Signed scripts for [place]. Rh positive. Rubella not listed. JM Subjective/ Course: 09/12/17 09:53 Doing well. Was able to get some sleep overnight. Working on . Moderate lochia. Still has urinary catheter in currently. Has been out of bed once - did well, was momentarily dizzy but resolved. Pain well controlled. 09/13/17 20:47 Jane is doing great - no concerns, would be interested in going home. Still needing some narcotics. Objective: 09/12/17 06:00 Patient ABO/Rh AB POSITIVE 09/10/17 12:40 Temp Pulse Resp BP Pulse Ox 36.2 C 71 14 114/71 93 09/13/17 08:00 09/13/17 08:00 09/13/17 08:00 09/13/17 08:00 09/13/17 08:00 WBC 8.20 10^3/uL (3.80-9.50) 09/10/17 12:40 RBC 3.57 10^6/uL (4.18-5.33) L 09/10/17 12:40 Hgb 11.9 g/dL (12.6-16.3) L 09/10/17 12:40 Hct 27.6 % (38.0-47.0) L 09/12/17 06:00 MCV 95.2 fL (81.5-99.8) 09/10/17 12:40 MCH 33.3 pg (27.9-34.1) 09/10/17 12:40 MCHC 35.0 g/dL (32.4-36.7) 09/10/17 12:40 RDW 12.5 % (11.5-15.2) 09/10/17 12:40 Plt Count 189 10^3/uL (150-400) 09/10/17 12:40 MPV 11.8 fL (8.7-11.7) H 09/10/17 12:40 Neut % (Auto) 72.4 % (39.3-74.2) 09/10/17 12:40 Lymph % (Auto) 17.3 % (15.0-45.0) 09/10/17 12:40 [place] % (Auto) 8.4 % (4.5-13.0) 09/10/17 12:40 Eos % (Auto) 0.9 % (0.6-7.6) 09/10/17 12:40 Baso % (Auto) 0.5 % (0.3-1.7) 09/10/17 12:40 Nucleat RBC Rel Count 0.0 % (0.0-0.2) 09/10/17 12:40 Absolute Neuts (auto) 5.94 10^3/uL (1.70-6.50) 09/10/17 12:40 Absolute Lymphs (auto) 1.42 10^3/uL (1.00-3.00) 09/10/17 12:40 Absolute Monos (auto) 0.69 10^3/uL (0.30-0.80) 09/10/17 12:40 Absolute Eos (auto) 0.07 10^3/uL (0.03-0.40) 09/10/17 12:40 Absolute Basos (auto) 0.04 10^3/uL (0.02-0.10) 09/10/17 12:40 Absolute Nucleated RBC 0.00 10^3/uL (0-0.01) 09/10/17 12:40 Immature Gran % 0.5 % (0.0-1.1) 09/10/17 12:40 Immature Gran # 0.04 10^3/uL (0.00-0.10) 09/10/17 12:40 Patient ABO/Rh AB POSITIVE 09/10/17 12:40 Antibody Screen NEGATIVE 09/10/17 12:40 Uterine Position/Fundal Height: At Umbilicus Uterine Tone: Firm Physical Exam - Physical Exam General Appearance: alert, no apparent distress Abdomen: incision (CDI with steristrips)
--- NOTE | 2017-09-13 20:53 | OBGCSDC ---
General Delivery Information - General Info : 2 Para: 1 Abortions: 1 Type: Primary L&D Analgesia/Anesthesia Type: Epidural, Spinal, Nitrous Admission Date: 09/10/17 Labs: Patient ABO/Rh AB POSITIVE 09/10/17 12:40 Hct 27.6 % (38.0-47.0) L 09/12/17 06:00 - Hospital Course Intrapartum: 09/10/17 20:46 Pt doing well, getting a bit uncomfortable with contractions. No LOF. 09/11/17 00:39 Pt a bit frustrated. Sometimes contractions are uncomfortable, sometime not at all. No LOF, no VB. 09/11/17 04:40 Doing well, was in the tube for a while. Agreed to proceed with AROM after a long discussion. 09/11/17 08:37 Pt is feeling very tired and frustrated. She continues to have strong contractions, but feels less pressure and less momentum. She is exhausted and wants to be "done." 09/11/17 12:11 Pt is feeling much better with her epidural. She has good pain control and was able to rest and feels revived. She would like to try some clear liquids. 09/11/17 13:28 Pt remains comfortable with her epidural. : 09/12/17 09:53 Doing well. Was able to get some sleep overnight. Working on . Moderate lochia. Still has urinary catheter in currently. Has been out of bed once - did well, was momentarily dizzy but resolved. Pain well controlled. 09/13/17 20:47 Jane is doing great - no concerns, would be interested in going home. Still needing some narcotics. Vaginal - Diagnosis Amniotic Fluid Color: Meconium Stained - Procedures Non-surgical Procedures: Amniotomy, IUPC - Delivery Providers Surgeon: Nayeli Caicedo Project Manager Retail: Layne Santiago Anesthesiologist: Moose Liu - Delivery Indications for Current Section: Arrest of Dilation, Non-reas. Status Non-surgical Procedures: Amniotomy, IUPC Surgical Procedures: Unscheduled Intra-op Complications: None EBL: 800 [place] Data CODIE: 08/27/17 Gestational Age: 42 week(s) and 3 day(s) [place] Delivery Date: 06/23/18 Delivery Time: 14:24 Sex of Infant: Female Weight (gm): 4200 g Score (1 Min): 8 Score (5 Min): 9 Discharge Information - Discharge Information Prescriptions: Hydrocodone/APAP 5/325 [[place] 5/325 (*)] 1 - 2 tab PO Q4HRS PRN #20 tab PRN Reason: Pain, Moderate Condition: Good Instruction/Follow Up: See Instruction Sheet, Two Weeks, Four Weeks, Six Weeks
== END 2017-09-13 18:30 | disposition home or self-care (01) | DRG 766 ==
LOC: FLD 12:05 → FOB 09-11 18:15
PROVIDERS: ADMIT Hospitalist; ATTEND Hospitalist
PROC: 3E033VJ Introduction of Other Hormone into Peripheral Vein, Percutaneous Approach (ICD-10-PCS; principal; 2017-09-10)
PROC: 10H073Z Insertion of Monitoring Electrode into Products of Conception, Via Natural or Artificial Opening (ICD-10-PCS; 2017-09-10)
PROC: 10D00Z1 Extraction of Products of Conception, Low, Open Approach (ICD-10-PCS; 2017-09-11)
DX: O62.0 Primary inadequate contractions (principal); O48.1 Prolonged pregnancy; O77.0 Labor and delivery complicated by meconium in amniotic fluid; O76 Abnormality in fetal heart rate and rhythm complicating labor and delivery; Z3A.42 42 weeks gestation of pregnancy; Z37.0 Single live birth
CPT/HCPCS: J0690; J1100; J1885; J2210; J2270; J2370; J2400; J2405; J2590; J3010; J3105